=== PATIENT | female | born 1955 | race Caucasian/White ===

== ENCOUNTER 2020-12-08 12:33 | Emergency (ER) | payer SELFPAY ==
[2020-12-08 13:36] LABS: HEMOGLOBIN 13.1 gm/dl (12.3-15.3)
[2020-12-08 13:41] LABS: WHITE BLOOD COUNT 8.7 K/UL (4.5-11.0)
[2020-12-08 13:42] LABS: RED BLOOD COUNT 4.43 M/UL (4.00-5.10)
[2020-12-08 14:07] LABS: BUN/CREATININE RATIO 8 (0-10)
[2020-12-08] MEDS ORDERED: K-DUR TAB 10 M10 MEQ PO (15:13)
[2020-12-08] MEDS ORDERED: COMPAZINE 10MG10 MG PO (15:13)
== END 2020-12-08 15:19 | disposition home or self-care (01) ==
LOC: ER1 12:33
PROVIDERS: Emergency Medicine
DX: E87.6 Hypokalemia (principal); I10 Essential (primary) hypertension; K21.9 Gastro-esophageal reflux disease without esophagitis; E11.9 Type 2 diabetes mellitus without complications
CPT/HCPCS: 80053; 83690; 84484; 85025; 86140; 99284